=== PATIENT | female | born 1975 | race Caucasian/White ===

== ENCOUNTER 2017-03-17 03:23 | Emergency (ER) | payer BC ==
[~2017-03-17] VITALS: Ht 162.6 cm; Wt 78.7 kg
[~2017-03-17 03:23] MED LIST: COLACE100 MG PO; OXYCODONE HCL5 MG PO; ULTRAM50 MG PO
[2017-03-17 04:43] LABS: MCHC 32.9 G/DL (30.0-36.0); MCV 91.1 FL (83-99); MEAN PLAT.VOLUME 9.7 uM^3 (9.5-12.4); PLATELET COUNT 244 K/uL (156-360); RBC DIS.WIDTH-SD 40.3 % (39-53); RED BLOOD COUNT 4.17 M/uL (3.80-5.20); WHITE BLOOD COUNT 6.3 K/uL (4.1-10.2)
[2017-03-17 05:16] LABS: CHLORIDE 102 mEq/L (99-109); POTASSIUM 3.4 mEq/L (3.7-5.4); SODIUM 139 mEq/L (136-147)
[2017-03-17 05:18] LABS: GLUCOSE 100 mg/dL (70-99)
[2017-03-17 05:19] LABS: ANION GAP 8 MEQ/L (2-14)
[2017-03-17] MEDS ORDERED: AUGMENTIN875 MG PO (05:20)
[2017-03-17 05:21] LABS: GFR ESTIMATE (CALCULATED) > 59 mL/min/
[2017-03-17 05:22] LABS: UREA NITROGEN (BUN) 13 mg/dL (9-23)
[2017-03-17 05:37] VITALS: BP 137/81
== END 2017-03-17 05:38 | disposition home or self-care (01) ==
LOC: EME 03:23
PROVIDERS: Emergency Medicine
DX: J20.9 Acute bronchitis, unspecified (principal); I10 Essential (primary) hypertension; J01.90 Acute sinusitis, unspecified; Z91.048 Other nonmedicinal substance allergy status
CPT/HCPCS: 71020; 80048; 85027; 94640; 99281; 99283

== ENCOUNTER 2017-08-20 02:11 | Observation (INO) | payer BC ==
[~2017-08-20] VITALS: Ht 162.6 cm; Wt 81.0 kg
[~2017-08-20 02:11] MED LIST changes: +AUGMENTIN875 MG PO
[2017-08-20 02:34] LABS: HEMATOCRIT 41.2 % (36.0-46.0); MCH 30.7 PG (29.0-34.0); MCHC 33.7 G/DL (30.0-36.0); MCV 90.9 FL (83-99); MEAN PLAT.VOLUME 10.5 uM^3 (9.5-12.4); PLATELET COUNT 294 K/uL (156-360); RBC DIS.WIDTH-CV 12.3 % (11.8-14.6); RBC DIS.WIDTH-SD 40.9 % (39-53); RED BLOOD COUNT 4.53 M/uL (3.80-5.20); WHITE BLOOD COUNT 7.9 K/uL (4.1-10.2)
[2017-08-20 02:42] LABS: CHLORIDE 106 mEq/L (99-109); POTASSIUM 3.9 mEq/L (3.7-5.4); SODIUM 141 mEq/L (136-147)
[2017-08-20 02:45] LABS: GLUCOSE 123 mg/dL (70-99)
[2017-08-20 02:46] LABS: ANION GAP 9 MEQ/L (2-14)
[2017-08-20 02:47] LABS: TOTAL BILIRUBIN 0.3 mg/dL (0.0-1.0)
[2017-08-20 02:48] LABS: ALKALINE PHOSPHATASE 52 IU/L (3-129); GFR ESTIMATE (CALCULATED) 53 mL/min/
[2017-08-20 02:49] LABS: UREA NITROGEN (BUN) 17 mg/dL (9-23)
[2017-08-20 02:52] LABS: LIPASE 13 U/L (1.0-51.0)
[2017-08-20 02:57] LABS: QUANTITATIVE HCG < 4.0 MIU/ML
[2017-08-20 04:58] LABS: ADD MIUA? YES; BILIRUBIN NEGATIVE; BLOOD NEGATIVE; COLOR YELLOW ((YELLOW)); GLUCOSE (STRIP) 50; KETONES NEGATIVE; LEUKOCYTES NEGATIVE; NITRITE NEGATIVE; PROTEIN (STRIP) 30; SPECIFIC GRAVITY 1.011 (1.000-1.030); UROBILINOGEN 0.2 MG/DL (0.2-1.0)
[2017-08-20 05:19] LABS: BACTERIA 1+ /HPF; EPITHELIAL CELLS 1+ /HPF; MUCUS RARE /LPF; RED BLOOD CELLS 0-5 /HPF (0-5); UCUL ADDED? NO; WHITE BLOOD CELLS 0-5 /HPF (0-5)
[2017-08-20 05:20] LABS: AMORPHOUS PHOSPHATE CRYSTALS 2+; CRYSTALS PRESENT
[2017-08-20] MEDS ORDERED: OXYCODONE HCL30 MG PO (07:23)
[2017-08-20] MEDS ORDERED: COLACE100 MG PO (07:24)
[2017-08-20] MEDS ORDERED: SOMA350 MG PO (07:25)
[2017-08-20] MEDS ORDERED: ESTRADIOL2 MG PO (07:25)
[2017-08-20] MEDS ORDERED: OXYMORPHONE HCL20 MG PO (07:26)
[2017-08-20] MEDS ORDERED: LOSARTAN POTASS50 MG PO (07:26)
[2017-08-20] MEDS ORDERED: MONTELUKAST SOD10 MG PO (07:27)
[2017-08-20] MEDS ORDERED: PROAIR RESPICL90 MCG IH (07:27)
[2017-08-20] MEDS ORDERED: ICY HOT CREAM35.4 G1 TP (07:28)
[2017-08-20] MEDS ORDERED: ALBUTEROL2.5 MG/3 M IH (07:28)
[2017-08-20] MEDS ORDERED: TYLENOL PM EX-1 EACH PO (07:29)
[2017-08-20 16:48] VITALS: BP 143/87
[2017-08-20 20:00] VITALS: BP 157/80
[2017-08-21] VITALS (8 sets, daily range): BP systolic 97–159; BP diastolic 63–95
[2017-08-21 05:30] LABS: MCH 29.8 PG (29.0-34.0); MCHC 32.8 G/DL (30.0-36.0); MCV 90.9 FL (83-99); MEAN PLAT.VOLUME 10.2 uM^3 (9.5-12.4); PLATELET COUNT 230 K/uL (156-360); RBC DIS.WIDTH-SD 40.2 % (39-53); RED BLOOD COUNT 3.96 M/uL (3.80-5.20); WHITE BLOOD COUNT 4.5 K/uL (4.1-10.2)
[2017-08-21 05:55] LABS: ANION GAP 5 MEQ/L (2-14); CHLORIDE 108 MEQ/L (99-109); GFR ESTIMATE (CALCULATED) 48 mL/min/; GLUCOSE 105 mg/dL (70-99); POTASSIUM 3.9 MEQ/L (3.7-5.4); SAMPLE HEMOLYSIS CHECK 0; SAMPLE ICTERIC CHECK 0; SAMPLE LIPEMIA CHECK 0; SODIUM 141 MEQ/L (136-147); UREA NITROGEN (BUN) 9 mg/dL (9-23)
[2017-08-22 00:40] VITALS: BP 144/85
[2017-08-22 04:40] VITALS: BP 162/87
[2017-08-22 11:48] VITALS: BP 141/73
[2017-08-22 16:00] VITALS: BP 131/80
[2017-08-22 20:00] VITALS: BP 146/88
[2017-08-22 23:40] VITALS: BP 146/87
== END 2017-08-23 03:20 | disposition left against medical advice (07) ==
LOC: EME 02:11 → EDOF 05:59 → ENRESERV 06:03 → 5WEST 07:45
PROVIDERS: Internal Medicine; Physician Assistant
DX: N13.2 Hydronephrosis with renal and ureteral calculous obstruction (principal); I10 Essential (primary) hypertension; R94.8 Abnormal results of function studies of other organs and systems; G89.4 Chronic pain syndrome; Z90.49 Acquired absence of other specified parts of digestive tract; Z90.711 Acquired absence of uterus with remaining cervical stump; Z82.49 Family history of ischemic heart disease and other diseases of the circulatory system; Z91.09 Other allergy status, other than to drugs and biological substances
CPT/HCPCS: 74176; 80048; 80053; 81003; 82365 90; 83690; 84702; 85027; 87086; 99281; 99285; C1758; C2625; G0378; J0696; J1100; J1170; J1644; J1885; J2060; J2250; J2270; J2405; J2765; J3010; J7030; J7040; J7042